=== PATIENT | female | born 1980 | race Two or more races ===

== ENCOUNTER 2017-10-10 03:57 | Emergency (ER) | payer SELFPAY ==
[~2017-10-10] VITALS: Ht 160 cm; Wt 61.4 kg
[2017-10-10] MEDS ORDERED: OxyCODONE HCL/ACETAMINOPHEN 5-325 MG TABLET PO ONE (10:45)
[2017-10-10 15:18] VITALS: BP 131/77
== END 2017-10-10 15:58 | disposition home or self-care (01) ==
LOC: EMS 03:59
DX: S42.352A Displaced comminuted fracture of shaft of humerus, left arm, initial encounter for closed fracture (principal); S00.83XA Contusion of other part of head, initial encounter; F17.210 Nicotine dependence, cigarettes, uncomplicated; F12.90 Cannabis use, unspecified, uncomplicated; Y04.0XXA Assault by unarmed brawl or fight, initial encounter; Y93.89 Activity, other specified; Y92.89 Other specified places as the place of occurrence of the external cause; Y99.8 Other external cause status
CPT/HCPCS: 29105; 70450; 72125; 99284